=== PATIENT | female | born 1980 | race Caucasian/White ===

== ENCOUNTER 2020-12-05 20:23 | Emergency (ER) | payer SELFPAY ==
[2020-12-05] MEDS ORDERED: DIPH/PERTUSS(ACELL)/TETANUS VAC/PF 0.5 ML SYR (>=10YO) IM ONE ×2 (20:46→22:49)
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
[2020-12-05] MEDS ORDERED: ONDANSETRON ODT 4 MG TAB (6 TAB/ER DISP) PO PRN (22:41)
[2020-12-05 23:10] VITALS: BP 138/87
== END 2020-12-05 23:05 | disposition home or self-care (01) ==
LOC: ER 20:23
DX: S06.0X0A Concussion without loss of consciousness, initial encounter (principal); R42 Dizziness and giddiness; R11.0 Nausea; H53.149 Visual discomfort, unspecified; W22.09XA Striking against other stationary object, initial encounter; Z23 Encounter for immunization
CPT/HCPCS: 70450; 90471; 90715; 99284